=== PATIENT | male | born 2000 | race Hispanic/Latino ===

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

== ENCOUNTER 2024-01-12 02:26 | Emergency (ER) | payer MEDICAID, OTHER ==
[~2024-01-12] VITALS: Ht 175.3 cm; Wt 68.0 kg
[2024-01-12 02:32] VITALS: BP 145/65; PULSE 102; RESP 16
[2024-01-12] MEDS: CEPHALEXIN 500 MG CAPSULE PO ONE (02:59)
[2024-01-12] MEDS: LIDOCAINE HCL 1% 20 ML VIAL INJ SCH (03:00)
[2024-01-12] MEDS: TETANUS/DIPHTHERIA TOXOID [ADULT] 0.5 ML VIAL IM ONE (03:01)
[2024-01-12] MEDS ORDERED: CEPH500T PO (03:04)
== END 2024-01-12 03:08 | disposition home or self-care (01) ==
LOC: EDH 02:26
DX: S81.811A Laceration without foreign body, right lower leg, initial encounter (principal); Z98.890 Other specified postprocedural states; Z76.5 Malingerer [conscious simulation]; W45.8XXA Other foreign body or object entering through skin, initial encounter; Y93.89 Activity, other specified; Y92.89 Other specified places as the place of occurrence of the external cause; Y99.8 Other external cause status
CPT/HCPCS: 12002; 90471; 90714

== ENCOUNTER 2025-01-24 01:59 | Emergency (ER) | payer SELFPAY ==
[~2025-01-24] VITALS: Ht 175.3 cm; Wt 67.1 kg
[~2025-01-24 01:59] MED LIST: CEPH500T PO
[2025-01-24] MEDS ORDERED: AZIT250T9 PO (02:58)
[2025-01-24] MEDS ORDERED: METH4TAB3 PO (02:58)
--- NOTE | 2025-01-24 02:59 | ERN ---
General Chief Complaint: Cough Stated Complaint: C/O COUGH,CONGESTION,SORE THROAT X 2 WKS Time Seen by MD: 02:02 Time Seen by Midlevel: 02:02 Source: patient History of Present Illness Initial Comments Patient is a 24-year-old male with no significant past medical history presenting to the emergency department for evaluation of flu-like symptoms that have allegedly been ongoing for two weeks. Symptoms consist of cough, congestion, and a sore throat. He does report going to [place] for spring. Denies any other symptoms. Allergies: Coded Allergies: No Known Allergies (Unverified Allergy, Unknown, 01/12/24) Home Meds Active Scripts Methylprednisolone (Medrol) 4 Mg Tab.ds.pk, 1 TAB PO AD for 6 Days, #21 TAB 0 Refills 6 on day 1 then reduce by one tablet daily until gone Prov:CHRISTIANA ROWE 01/24/25 Azithromycin (Azithromycin) 250 Mg Tablet, 1 TAB PO AD for 5 Days, #6 TAB 0 Refills 2 the first day followed by 1 for days 2-5 Prov:CHRISTIANA ROWE 01/24/25 Cephalexin (Cephalexin) 500 Mg Tablet, 500 MG PO TID for 7 Days, #21 TAB 0 Refills Prov:PATI SANCHES Sr., MD 01/12/24 Past Medical History Past Medical History: No Pertinent History Past Surgical History: None Surgical History Other: surgery to left ring finger ROS Dictation CONSTITUTIONAL: Negative except for HPI HEAD/FACE: Negative except for HPI EENT: Negative except for HPI RESPIRATORY: Negative except for HPI GASTROINTESTINAL/ABDOMINAL: Negative except for HPI GENITOURINARY: Negative except for HPI MUSCULOSKELETAL: Negative except for HPI INTEGUMENTARY: Negative except for HPI NEUROLOGICAL/PSYCH: Negative except for HPI HEMATOLOGIC/LYMPHATIC: Negative except for HPI All Systems Negative, Except as noted above. 13 point review of systems assessed and all negative except for above. Physical Exam Physical Exam Dictation Vital Signs reviewed General Appearance: Alert, oriented x 3, no acute distress, well developed, nourished. Head and Face: non-traumatic. Eyes: PERRL, pink conjunctivas, eyelid no trauma, anterior chamber with arcus senilis. Ears: Pinnas intact and no signs of trauma or erythema ear canals clear and no discharge TM no erythema Nose: No discharge, no bleeding. Oropharynx: Mouth normal, tongue pink, pharynx clear,no erythema, tonsils no exudates, no abscesses noted, mucous membrane moist Neck: Supple, non-tender, no thyromegaly, no masses, no JVD, no bruits Breast:Deferred Chest:No tenderness, no crepitus, no paradoxical movement, no retractions Lungs:Clear, well-ventilated, symmetric, no rales, no wheezing, no rhonchi, no stridor, good breath sounds bilaterally Heart: Regular rate, regular rhythm, no murmur, no gallops Vascular: no peripheral edema, Abdomen: Soft, positive bowel sounds, nondistended, no guarding, nontender, no rebound, no masses no hepatomegaly, no splenomegaly, no Barr's sign, no hernias. Rectal: Deferred Genital: Deferred Neurological: Normal speech, motor function intact, sensory function intact Musculoskeletal: Neck nontender, full range of motion, back nontender, full range of motion, Extremities: nontender, full range of motion Skin: Color pink, dry, no turgor, no rash, no lacerations, no abrasions, no con tusions. Lymphatic: Deferred Results Laboratory and Microbiology Lab and Micro Result Laboratory Tests Test 01/24/25 02:36 Influenza Type A Antigen Negative For Type A Influenza Type B Antigen Negative For Type B Group A Streptococcus Rapid negative (NEGATIVE) MDM MDM: Differential diagnosis: Viral illness, upper respiratory infection, strep There are no social concerns with this patient. Prescription drug management Prescriptions will include:, Medrol pack, azithromycin Medical management and examination interpretation discussions were had by ks w ith other qualified healthcare professionals as indicated for the patient's care. ED Course Orders Procedure Category Date Status Time Covid Rna Naat LAB 01/24/25 In Process 02:01 Influenza Type A & B, LAB 01/24/25 In Process Rapid 02:01 Rapid (Group A Strep) LAB 01/24/25 In Process 02:01 Dexamethasone 4mg/Ml PHA 01/24/25 Complete 1ml Vial (Dexametha 02:30 Current Medications Medications (Trade) Dose Ordered Sig/Mirella Route PRN Reason Start Time Stop Time Status Last Admin Dose Admin Dexamethasone Sodium Phosphate (dexaMETHasone 4MG/ML 1ML VIAL) 8 mg ONCE ONCE IM 01/24/25 02:30 01/24/25 02:31 DC Vital Signs Date Time Temp Pulse Resp B/P (MAP) Pulse Ox O2 Delivery O2 Flow Rate FiO2 01/24/25 02:02 99.0 61 20 116/59 98 Room Air DX & DISP Disposition: Discharge Departure Impression: Primary Impression: COVID-19 Condition: Stable Scripts Methylprednisolone (Medrol) 4 Mg Tab.ds.pk 1 TAB PO AD for 6 Days, #21 TAB 0 Refills 6 on day 1 then reduce by one tablet daily until gone Prov: CHRISTIANA ROWE 01/24/25 Azithromycin (Azithromycin) 250 Mg Tablet 1 TAB PO AD for 5 Days, #6 TAB 0 Refills 2 the first day followed by 1 for days 2-5 Prov: CHRISTIANA ROWE 01/24/25 Additional Instructions: You have tested positive for COVID-19. I have given you a prescription for oral steroids and a azithromycin for outpatient management. Follow up with your primary care doctor in 2-3 days for repeat evaluation. Referrals: SELF,REFERRAL (PCP) Time of Disposition: 02:58 I have reviewed the case, and I agree with, Diagnosis and Plan I performed the substantive portion of the visit. I have reviewed and personally made and approve the management plan that is documented in the note by myself or the HILARIO. I acknowledge for responsibility for the patient's management plan. CHRISTIANA ROWE Jan 24, 2025 02:59
[2025-01-24 03:02] LABS: RAPID GROUP A STREP negative (NEGATIVE)
[2025-01-24 03:10] LABS: INFLUENZA TYPE A Negative For Type A (NEGATIVE); INFLUENZA TYPE B Negative For Type B (NEGATIVE)
[2025-01-24 03:16] LABS: SARS-CoV-2, RNA, NAAT POSITIVE SARS CoV-2 (NEGATIVE)
[2025-01-24] MEDS: dexaMETHasone SOD PHOSPHATE 4 MG/ML 1ML VIAL IM ONE (03:50)
[2025-01-24 04:30] VITALS: BP 106/72; PULSE 74; RESP 16; TEMP 98.1; O2SAT 99
== END 2025-01-24 04:37 | disposition home or self-care (01) ==
LOC: EDH 01:59
DX: U07.1 COVID-19 (principal); Z79.899 Other long term (current) drug therapy
CPT/HCPCS: 99283; 87635; 87880; 87804 ×2; 96372; J1100